=== PATIENT | female | born 1955 | race Caucasian/White ===

== ENCOUNTER 2018-11-05 06:24 | Inpatient (IN) ==
[~2018-11-05 06:24] MED LIST: MORPHINE SULFATE 15 MG TABLET.SA PO PRN; TRANEXAMIC ACID 1,000 MG in NORMAL SALINE 100 ML IV PRN; ceFAZolin SODIUM 1 GM VIAL IV PRN
[2018-11-05] MEDS: RINGER'S SOLUTION,LACTATED 1,000 ML IV PRN ×2 (06:58→10:21)
--- NOTE | 2018-11-05 07:02 | ANES ---
Anesthesia Pre Procedure Eval HOME MEDICATIONS Loratadine [Claritin] 10 mg PO DAILY 07/19/12 [Last Taken 11/04/18] omeprazole 20 mg tablet,delayed release 20 mg PO DAILY 12/12/17 [Last Taken 11/04/18] fluticasone propionate 50 mcg/actuation nasal spray,suspension 2 spray RONAL DAILY PRN 01/12/18 [Last Taken 11/04/18] hydrochlorothiazide 25 mg tablet 25 mg PO DAILY #90 tab 07/11/18 [Last Taken 11/04/18] simvastatin 20 mg tablet 20 mg PO HS #90 tab 07/27/18 [Last Taken 11/04/18] metoprolol succinate ER 50 mg tablet,extended release 24 hr 50 mg PO DAILY #90 tab 08/15/18 [Last Taken 11/05/18] Allergies/Adverse Reactions: Allergies Allergy/AdvReac Type Severity Reaction Status Date / Time penicillin G AdvReac Mild Hives Verified 10/25/18 09:48 - Planned Procedure Planned Procedure: L reverse total shoulder Medication List Reviewed:: Yes Allergies Verified: Yes Medical History (Updated 11/05/18 @ 06:37 by Carolann Camacho RN) Hypokalemia (Chronic) Onset Date: Unknown Hyperlipemia (Chronic) HTN (hypertension) (Chronic) Acid reflux Wears glasses Seasonal allergies History of abnormal cervical Pap smear Onset Date: ~2004 Surgical History (Updated 11/05/18 @ 06:36 by Carolann Camacho RN) 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 Santana, right History of colonoscopy Onset Date: ~2009 Dr garcia negative screening S/P nasal surgery Onset Date: 12/05/17 removal nasal polyps Family History (Last Reviewed 11/05/18 @ 06:54 by Phill Leon CRNA) Father Myocardial infarction Mother Hypertension Brother Diabetes Hypertension Brother Hypertension Brother Unknown whether patient has any health problems Daughter Hypertension Daughter Alive and well Son Alive and well - Family Anesthesia History Family History:: no untoward family reactions to anesthesia, no familial bleeding tendencies, no family history of clotting disorders, no family history of premature - Airway/Neck/Teeth Within Normal Limits:: Yes Teeth Condition: intact Mallampatti Score: 3 Thyromental (T-M) distance: > 6 cm Mandibulo Hyoid distance: > 3 cm - Respiratory Respiratory Physical: lungs clear Smoking Status: Never smoker Sleep Apnea currently treated: No Sleep Apnea by current assessment: No - Cardiovascular Cardiac History: hypertension, hyperlipidemia Tolerate Activity: Fair Heart Sounds: S1 & S2, Regular - Anesthesia Assessment and Plan ASA Class: PS, II Anesthesia Type Plan: General LMA, Block Planned difficult intubation/equipment available: No
[2018-11-05] MEDS ORDERED: MORPHINE SULFATE 2 MG/ML DISP.SYRIN IV PRN (10:05)
[2018-11-05] MEDS ORDERED: ONDANSETRON HCL/PF 2 MG/ML VIAL IV PRN (10:05)
[2018-11-05] MEDS ORDERED: MAG HYDROX/ALUMINUM HYD/SIMETH 30 ML UDC PO PRN (10:05)
[2018-11-05] MEDS ORDERED: ZOLPIDEM TARTRATE 5 MG TABLET PO PRN (10:05)
[2018-11-05] MEDS ORDERED: DEXTROSE 5%-LACTATED RINGERS 1,000 ML IV PRN (10:05)
[2018-11-05] MEDS ORDERED: diphenhydrAMINE HCL 50 MG/ML VIAL IV PRN (10:05)
[2018-11-05] MEDS ORDERED: MAGNESIUM HYDROXIDE 30 ML UDC PO PRN (10:05)
[2018-11-05] MEDS ORDERED: ACETAMINOPHEN 500 MG TABLET PO PRN (10:05)
[2018-11-05] MEDS ORDERED: FLUTICASONE PROPIONATE 120 SPRAY INHALER NS PRN (10:07)
--- NOTE | 2018-11-05 10:13 | OR ---
Operative Report - Dictated Report Narrative: DATE OF PROCEDURE: 11/05/2018 PHYSICIAN: Evangelist Santana MD PARK AIDE: Zbigniew Sahu PA-C (provided and essential set of skilled, educated hands that assisted with transfer, positioning, prepping, draping, manipulation, retraction, placement of implants, irrigation, closure wounds, and application of dressings all which cannot be performed by the available surgical crew) PREOPERATIVE DIAGNOSIS: Left rotator cuff deficient shoulder arthrosis. POSTOPERATIVE DIAGNOSIS: Left rotator cuff deficient shoulder arthrosis. OPERATIONS AND PROCEDURES: Left reverse total shoulder arthroplasty. ANESTHESIA: General plus regional. COMPLICATIONS: None. DRAINS: None. SPECIMENS: Bone. ESTIMATED BLOOD LOSS: 75 mL. RETAINED IMPLANTS: 1. DePuy Delta Xtend cementless metaglene. 2. Delta Xtend glenosphere, 38 mm standard. 3. Delta Xtend size 8 modular humeral TORRES-coated cementless stem. 4. Size 1 left modular eccentric epiphysis TORRES-coated cementless. 5. Delta Xtend standard polyethylene size 38 plus 3 mm. 6. Metaglene locking screws, 36 mm and 36 mm in length. 7. Nonlocking metaglene screws, 18 mm x 2 . INDICATIONS FOR PROCEDURE: Mrs. Rosado is a 63-year-old female with significant past history of rotator cuff tears and deficiency. She had treated these conservatively and had an irreparable rotator cuff with some progression of arthrosis of the shoulder and difficulty with activities of daily living in pain. She was seen in clinic and had failed conservative measures. She wished to proceed with surgical treatment. The risks, benefits, and alternatives were discussed in clinic, including the risk of , blood clots, bleeding, infection, nerve/tendon/blood vessel injury, malposition of components, failure of components, wear or limited range of motion, stiffness, and need for additional procedures, and she wished to proceed. Consent was obtained here in the clinic. DESCRIPTION OF PROCEDURE: After marking the correct extremity in the preoperative holding area, the patient was taken to the operating room. A timeout was performed. IV antibiotics consisting of Ancef were administered prior to procedure. The regional followed by general anesthetic was induced by the nurse roller shop supervisor at my request. She was then transitioned to beach chair position with all bony prominences well padded. The head in neutral, legs with SCDs and supported,and the nonoperative arm supported. The surgical arm was prescrubbed with alcohol then prepped and draped in the standard sterile fashion and the skin was covered with ioban. A deltopectoral incision was made and blunt dissection was carried down through the skin. The cephalic vein was identified, protected, and retracted. We then went through the deltopectoral interval, exposing the proximal humerus. It was noted that there was no rotator cuff, supraspinatus and infraspinatus tendon, or teres minor tendon. The subscapularis was intact as well as the biceps. A tag suture was placed in subscapularis tendon as well as the anterior capsule, and this was elevated off the anterior humerus passing along the bicipital groove and into the rotator cuff interval, exposing the proximal humerus. This was then freed off the proximal humerus. A biceps tenotomy was performed and the shoulder was dislocated. The humeral head was noted to show signs of arthrosis. Next, an entry drill was placed down the humerus centered on the longitudinal axis entering off just onto the articular surface on the humeral head. Next were serial reamers up to the size 8 were utilized, which gave good overall cortical contact. Next, a proximal humeral head cut was performed. We made the cut at approximately 10 degrees of retroversion. This appeared to resect an appropriate amount of humeral head. This was then pinned into place and an oscillating saw was utilized to cut this humeral head, protecting the surrounding soft tissues. We then placed a cap over the proximal humerus and turned our attention to the glenoid. The soft tissues were then elevated off the humeral neck as well as circumferentially around the glenoid. The glenoid was exposed. The remaining biceps tendon and labrum were resected. Using tractors, the glenoid was exposed and a guidewire was placed just posterior and inferior to the center of the glenoid. This was made so that it directed slightly superiorly but otherwise perpendicular to the glenoid on the axillary plane. Protecting the surrounding soft tissues, a reamer was utilized in order to remove the remaining cartilage. A floral merchandiser was utilized in order to resect the superior cartilage, and this resulted in a good overall appearance of the glenoid. The center drill lug hole was drilled and had good circumferential bone. The metaglene was then impacted into place and oriented for placement of screws along the mid plane in the superior and inferior quadrants of the glenoid as well as anterior to posterior screws. These were drilled and had appropriate overall length of screws on the superior and inferior metaglene screws. Good purchase was obtained with a 36 mm screw superiorly and 36 mm screw inferiorly. The anterior and posterior screws were drilled and 18 mm anterior and 18mm posterior nonlocking screws were plac ed. We then locked the superior and inferior screws into place. This gave good overall compression down to the glenoid with flat overall appearance and an appropriate alignment. We returned our attention to the proximal humerus. The proximal humeral reaming guide was placed for an eccentric reamer. This was utilized in order to prepare the proximal humerus. The trial stem was assembled on the back table and impacted into place. After placing the trial stem, we then returned to the metaglene. The glenosphere was then secured to the metaglene, impacted, and tightened ensuring that this was seated completely. We then returned to the humeral component and placed the trials of polyethylene inserts and found that the 3mm gave good overall longitudinal traction with no gapping. The shoulder was able to reach 140 degrees of forward flexion and 120 degrees of abduction, external rotation was to 80 degrees and with fulcrum and armpit were unable to hinge the joint out of place, and there was no essentially no gapping of the polyethylene off the humeral head nor any signs of impingement on the glenoid neck. We felt that these were the appropriately placed and sized implants. We then dislocated the shoulder, removed the trial implants, thoroughly irrigated the humerus, impacted the final implants into place in the prior determined retroversion. The trial polyethylene was utilized again and was noted that the actual stem and the trial stem were equal in tension, and thus the final polyethylene was impacted into place. The shoulder was reduced, again noted to be stable, was then thoroughly irrigated. The subscapularis and biceps tendon were secured to the surrounding soft tissues using a #1 Ethibond suture. The deltopectoral interval was closed with #0 Vicryl. The deep tissues were then closed with #0 Vicryl, subcutaneous with 3-0 Monocryl, and the skin with reyes. Xeroform, 4 x 4, ABD, soft roll, and full arm Dennis was applied. The patient was placed in a shoulder sling, awoken, and transferred to postanesthesia care in stable condition. All sponge, needle, and instrument counts were correct prior to closing the wounds. We will obtain postoperative films and be admitted to the floor for postoperative pain control, IV antibiotics, and starting of physical therapy. I anticipate a one to two night hospital stay.
--- NOTE | 2018-11-05 10:24 | ANES ---
Post Anesthesia Discharge - Transfer of Care Transfer of Care handoff given to nurse: Yes - Discharge from PACU Discharge from PACU when meets criteria: Yes - Comfortable and awake
--- NOTE | 2018-11-05 10:26 | ANES ---
Anesthesia Procedure Note Procedure Note: ANESTHESIA PROCEDURE NOTE Date of Procedure: [11/05/2018 Time of procedure: 7:40 AM. Performed by: EDGAR Marroquin CRNA, MSN Non Morse Intercept Technician: Herlinda Branch RN. Preprocedure diagnosis: Post reverse total shoulder arthroplasty pain. Post procedure diagnosis: Same. Procedure: Left interscalene nerve block. Indications: Post left reverse total shoulder arthroplasty pain relief. Findings: See below. Details of the procedure: The patient was brought to OR #4 and placed in semi- Fowlers position. The patient was prepped with chlorhexidine and using ultrasound guidance the left interscalene segment of the brachial plexus was identified and lidocaine 1% was infiltrated to the skin of the intended injection site. Under ultrasound guidance the interscalene nerve bundles were approached with visualization of a 2inch stimulator needle visualized unde ultrasound until a shoulder/arm response was identified on nerve stimulator. Once the stimulator response was effective at less than 0.5 mV and greater than 0.3 mV the bracheal plexus nerves at this level were surrounded with 30 mL bupiv acaine 0.5% with 1-200,000 epinephrine. Please see radiology/ultrasound report for details and retained images of the procedure. EBL: 0 Fluids: N/A. Specimen: N/A. Post procedure condition: The patient tolerated the procedure well. No complications were noted. Thank you for this consultation. Phill Leon CRNA, ARNP, MSN
--- NOTE | 2018-11-05 10:53 | ANES ---
Post Anesthesia Assessment - Vital Signs Vitals: Last Vital Signs Temp 36.9 C 11/05/18 10:50 Pulse 60 11/05/18 10:50 Resp 16 11/05/18 10:50 BP 128/72 11/05/18 10:50 Pulse Ox 95 11/05/18 10:50 Airway Patency: Normal - Mental Status Level Of Consciousness: Awake, Alert, Appropriate - Pain Level Pain Score: 0 - N/V Assessment Nausea/Vomiting Presence: None Dehydration:: No
[2018-11-05] MEDS: KETOROLAC TROMETHAMINE 15 MG/ML VIAL IV SCH ×3 (11:28→22:33)
[2018-11-05] MEDS: ceFAZolin SODIUM 1 GM in DEXTROSE 5 % IN WATER 100 ML IV SCH ×4 (12:33→17:48)
[2018-11-05] MEDS: oxyCODONE HCL/ACETAMINOPHEN 1 TAB TABLET PO PRN (19:33)
[2018-11-05] MEDS: MORPHINE SULFATE 15 MG TABLET.SA PO SCH (20:53)
[2018-11-05] MEDS: ASPIRIN 325 MG TABLET.DR PO SCH (20:53)
[2018-11-05] MEDS ORDERED: SENNOSIDES/DOCUSATE SODIUM 1 TAB TABLET PO SCH (21:00)
[2018-11-05] MEDS ORDERED: SIMVASTATIN 20 MG TABLET PO SCH (21:00)
[2018-11-06] MEDS: ceFAZolin SODIUM 1 GM in DEXTROSE 5 % IN WATER 100 ML IV SCH ×2 (00:44)
[2018-11-06] MEDS: oxyCODONE HCL/ACETAMINOPHEN 1 TAB TABLET PO PRN (04:49)
[2018-11-06] MEDS: KETOROLAC TROMETHAMINE 15 MG/ML VIAL IV SCH ×2 (04:49→12:23)
[2018-11-06 05:34] LABS: Hematocrit 32.5 % (37.0-47.0); Hemoglobin 10.9 gm/dL (12.5-16.0); Mean Corpuscular Hemoglobin 30.5 pg (27-31); Mean Corpuscular Hgb Conc 33.5 g/dl (32-36); Mean Platelet Volume 10.2 fl (8-12.5); Platelet Count 272 K/mm3 (150-450); Red Blood Count 3.57 M/mm3 (4.2-5.4); Red Cell Distribution Width 14.6 % (11.5-14.0)
[2018-11-06 05:53] LABS: Anion Gap 11.8 mmol/L (6.8-13.8); BUN/Creatinine Ratio 17.8 (9.0-21.6); Calcium * 8.5 mg/dL (7.9-10.9); Carbon Dioxide 27.1 mmol/L (24-32.6); Estimated Creat Clear 50.2; Potassium 3.9 mmol/L (3.4-4.6)
[2018-11-06] MEDS ORDERED: PANTOPRAZOLE SODIUM 20 MG TABLET.DR PO SCH (07:00)
[2018-11-06] MEDS: ASPIRIN 325 MG TABLET.DR PO SCH (08:04)
[2018-11-06] MEDS: MORPHINE SULFATE 15 MG TABLET.SA PO SCH (08:04)
[2018-11-06] MEDS ORDERED: LORATADINE 10 MG TABLET PO SCH (09:00)
[2018-11-06] MEDS ORDERED: HYDROCHLOROTHIAZIDE 25 MG TABLET PO SCH (09:00)
[2018-11-06] MEDS ORDERED: METOPROLOL SUCCINATE 50 MG TABLET.SA PO SCH (09:00)
--- NOTE | 2018-11-06 11:52 | DS ---
Date of Discharge:: 11/06/18 Description of Stay: Mrs. Rosado was admitted to the floor after undergoing reverse left total shoulder arthroplasty. Tolerated this well. Was admitted to the floor postoperatively for 24 hours of IV antibiotics, pain control, medical comanagement, and occupational and physical therapy. OT and PT were consulted to assist with activities of daily living and ambulation. Was made weightbearing as tolerated with shoulder range of motion as tolerated. Pain was initially controlled with IV regimen. This was transitioned to oral once tolerating a by mouth intake. Was resumed on home diet and medications. SCD and OLGA LIDIA hose were utilized for DVT prophylaxis. Vital signs remained stable to the hospital course. Serial labs were obtained which showed a final hemoglobin of 10.9 grams. BMP was reviewed and was stable. Physical examination throughout the hospital course showed an extremity that had sensation that was intact to light touch, palpable pulses, a benign wound, motor intact. Once an oral pain regimen was tolerated and physical therapy goals were met, it was felt that they were stable for discharge to home. Instructions: Continue with weightbearing as tolerated in immobilizer. Keep wound clean and dry. If you note any drainage or for comfort you can cover with dry gauze and tape. Change every 2-3 days as needed. Continue with physical therapy. Resume home diet. Report any fever over 101.5 Fahrenheit, uncontrolled pain, increased drainage, foul odor of drainage, new or increased calf pain or shortness of breath, or any other significant complaints. No driving until instructed otherwise. Follow up in approximately 10-14 days. Procedures Performed: see notes below List Procedures: Reverse left total shoulder arthroplasty Results and Findings: Lab Pending Results 11/06/18 05:29: WBC 18.0 H, RBC 3.57 L, Hgb 10.9 L, Hct 32.5 L, MCV 91.0, MCH 30.5, MCHC 33.5, RDW 14.6 H, Plt Count 272, MPV 10.2 11/06/18 05:29: Sodium 133, Plasma Sodium 133, Potassium 3.9 D, Chloride 98, Carbon Dioxide 27.1, Anion Gap 11.8, BUN 16, Creatinine 0.90, Est GFR (Non-Af Amer) 67, BUN/Creatinine Ratio 17.8, Random Glucose 114 H, Calcium 8.5 Discharge Location: Home Disposition: Home self-care Condition: Good Discharge Activity: Activity as tolerated, Other - In immobilizer Discharge Diet: General/regular food Referrals: Evangelist Santana MD [Staff Physician] - 11/20/18 9:30 am Problem Oriented Discharge Instructions to Patient/Family: Shoulder Joint Replacement Additional Patient Instructions (free text): Physical Therapy at [facility] on November 08 at 11:00am. Follow up in the office with Dr. Santana on MondayNovember 20 at 9:30am. Prescriptions (Any new or edited meds): Morphine Sulfate [Ms Contin] 15 mg PO Q12H #14 tablet.sa oxyCODONE HCL/ACETAMINOPHEN [Percocet 5 MG/325 MG] 2 tab PO Q4H PRN #60 tab PRN Reason: Moderate Pain (Pain Scale 4-6) Sennosides/Docusate Sodium [Senokot-S] 2 tab PO HS #30 tab Complete Home Medications List: Complete Home Medication List: Loratadine [Claritin] 10 mg PO DAILY 07/19/12 omeprazole 20 mg tablet,delayed release 20 mg PO DAILY 12/12/17 fluticasone propionate 50 mcg/actuation nasal spray,suspension 2 spray RONAL DAILY PRN 01/12/18 hydrochlorothiazide 25 mg tablet 25 mg PO DAILY #90 tab 07/11/18 simvastatin 20 mg tablet 20 mg PO HS #90 tab 07/27/18 metoprolol succinate ER 50 mg tablet,extended release 24 hr 50 mg PO DAILY #90 tab 08/15/18 Aspirin [Aspirin Enteric Coated] 325 mg PO BID tablet. 11/06/18 Morphine Sulfate [Ms Contin] 15 mg PO Q12H #14 tablet. 11/06/18 Sennosides/Docusate Sodium [Senokot-S] 2 tab PO HS #30 tab 11/06/18 oxyCODONE HCL/ACETAMINOPHEN [Percocet 5 MG/325 MG] 2 tab PO Q4H PRN #60 tab 11/06/18 Amb Orders for Discharge: OT Evaluation and Treatment Location: None Selected
[2018-11-06 13:38] VITALS: BP 138/79
== END 2018-11-06 13:30 | disposition home or self-care (01) | DRG 483 ==
LOC: MS 06:24
PROVIDERS: ADMIT Orthopaedic Surgery; ATTEND Orthopaedic Surgery
DX: I10 Essential (primary) hypertension; M19.012 Primary osteoarthritis, left shoulder; E78.5 Hyperlipidemia, unspecified
CPT/HCPCS: 36415; 73030; 80048; 85027; 97140; 97161; 97165